=== PATIENT | male | born 1955 | race Caucasian/White ===

== ENCOUNTER → 2017-12-21 | Outpatient (CLI) | payer MEDICARE, OTHER | LOC: LABWHC1 09:24 | PROVIDERS: ATTEND Urology | DX: N31.2 Flaccid neuropathic bladder, not elsewhere classified (principal) | CPT/HCPCS: 36415; 84153 ==

== ENCOUNTER → 2019-04-22 | Outpatient (CLI) | payer MEDICARE, OTHER ==
--- NOTE | 2019-04-22 09:26 | MR ---
EXAMINATION TYPE: MR lumbar spine wo con DATE OF EXAM: 04/22/2019 COMPARISON: X-ray 01/24/2016 HISTORY: Lumbago; Radiculopathy TECHNIQUE: T1 and T2 axial and sagittal images of the lumbar spine are submitted. FINDINGS: There is no abnormal signal seen within the visualized spinal cord or paraspinal soft tissu es. Nonspecific heterogeneous marrow signal. Subcentimeter right renal cyst suspected involving the u pper pole anteriorly. Incidental note made of a retroaortic left renal vein At L1-2 there is no disc herniation or canal stenosis. No foraminal encroachment. No degenerative dis c disease. At L2-3 there is diffuse circumferential disc bulging with hypertrophy of the facets and ligamentum f lavum. Mild bilateral foraminal encroachment. No Canal stenosis At L3-4 there is disc desiccation with broad-based disc bulging. There is more advanced facet arthrop athy and ligamentum flavum hypertrophy. Findings result in mild central stenosis and moderate to valentin re bilateral foraminal encroachment. At L4-5 there is disc desiccation with broad-based disc protrusion. Advanced facet arthropathy and li gamentum flavum hypertrophy. Moderate canal stenosis and moderate to severe bilateral foraminal encro achment. At L5-S1 there is broad-based central and right paracentral disc herniation with displacement of the right nerve root. There is mild impression upon the thecal sac. Mild to moderate bilateral foraminal encroachment. IMPRESSION: 1. Broad-based central and right paracentral disc herniation L5-S1 with displacement of the right ner ve root. 2. Broad-based central disc protrusion or herniation L4-L5. Hypertrophic change of the facets and lig amentum flavum result in moderate canal stenosis and moderate to severe bilateral foraminal encroachm ent. 3. Broad-based disc protrusion L3-L4 with hypertrophic change of the facets and ligamentum flavum res ults in mild canal stenosis and moderate to severe foraminal encroachment. 4. Multilevel mild degenerative disc disease with severe changes L5-S1
== END | disposition home or self-care (01) ==
LOC: RADMRIMAIN 08:41
PROVIDERS: ATTEND Neurological Surgery
DX: M48.061 Spinal stenosis, lumbar region without neurogenic claudication (principal); M51.16 Intervertebral disc disorders with radiculopathy, lumbar region; M51.27 Other intervertebral disc displacement, lumbosacral region; M51.37 Other intervertebral disc degeneration, lumbosacral region
CPT/HCPCS: 72148

== ENCOUNTER 2020-06-22 15:02 | Inpatient (IN) | payer MEDICARE, OTHER ==
[2020-06-22] MEDS ORDERED: ACETAMINOPHEN TAB 500 MG TAB PO PRN (15:19)
--- NOTE | 2020-06-22 15:31 | ED ---
SOB HPI - General Chief Complaint: Shortness of Breath Stated Complaint: Covid+/Headache/Cough Time Seen by Provider: 06/22/20 15:19 Source: patient Mode of arrival: ambulatory Limitations: no limitations - History of Present Illness Initial Comments: Augustus is a 65yo M with PMH of CAD and COPD who presents to the ER today for evaluation of feeling ill while having COVID. Patient reports that his significant other was symptomatic earlier in the week so they were both tested on the third, both tested positive. Patient reports that he didn't begin fe eling ill until yesterday. He states he has fevers, chills, body aches. He reports only mild shortness of breath. Denies any chest pain or cough. Denies any GI symptoms. - Related Data Home Medications Medication Instructions Recorded Confirmed Aspirin [Adult Low Dose Aspirin EC] 81 mg PO HS 01/21/16 06/22/20 Atorvastatin [Lipitor] 20 mg PO HS 01/21/16 06/22/20 Carvedilol [Coreg] 12.5 mg PO BID 01/21/16 06/22/20 Cyclobenzaprine [Flexeril] 10 mg PO BID PRN 01/21/16 06/22/20 Fluticasone/Vilanterol [Breo 1 puff INHALATION RT-DAILY 01/21/16 06/22/20 Ellipta 200-25 Mcg INH] Ipratropium/Albuterol Sulfate 1 puff INHALATION RT-QID PRN 01/21/16 06/22/20 [Combivent Respimat Inhaler] Zolpidem [Ambien] 10 mg PO HS 01/21/16 06/22/20 clonazePAM [KlonoPIN] 0.5 mg PO TID PRN 01/21/16 06/22/20 oxyCODONE-APAP 10-325MG [Percocet 1 tab PO Q4H PRN 01/21/16 06/22/20 10-325 mg] Famotidine [Pepcid] 20 mg PO HS 06/22/20 06/22/20 lisinopriL [Zestril] 5 mg PO DAILY 06/22/20 06/22/20 Allergies Allergy/AdvReac Type Severity Reaction Status Date / Time morphine Allergy Unknown Nausea & Verified 06/22/20 15:10 Vomiting Review of Systems ROS Statement: Those systems with pertinent positive or pertinent negative responses have been documented in the HPI. ROS Other: All systems not noted in ROS Statement are negative. Past Medical History Past Medical History: COPD, Hypertension, Myocardial Infarction ([place]), Musculoskeletal Disorder, Osteoarthritis (OA) Additional Past Medical History / Comment(s): BACK AND NECK PAIN, STATES DISCHARGED FROM [facility] 2 WEEKS AGO FOR DIVERTICULITIS. , STATES VOICE IS RASPY FROM CERVICAL SURGERIES WITH BREATHING TUBE. Last Myocardial Infarction Date:: 2008 History of Any Multi-Drug Resistant Organisms: None Reported Past Surgical History: Appendectomy, Heart Catheterization With Stent, Orthopedic Surgery Additional Past Surgical History / Comment(s): ROTATOR CUFF REPAIR, ARTHROSCOPIC KNEE SURGERY, HEART CATHS X5-HAS 8 STENTS (LAST STENT 2009), CERVICAL SURGERY X4 WITH HARDWARE. Past Anesthesia/Blood Transfusion Reactions: No Reported Reaction Additional Past Anesthesia/Blood Transfusion Reaction / Comment(s): NEVER RECEIVED BLOOD TRANSFUSION Date of Last Stent Placement:: 2009 Past Psychological History: Anxiety Smoking Status: Former smoker Past Alcohol Use History: None Reported Past Drug Use History: None Reported - Past Family History Mother Family Medical History: Cancer Brother(s) Family Medical History: Cancer General Exam Limitations: no limitations General appearance: alert Head exam: Present: atraumatic, normocephalic Respiratory exam: Present: other (tachypnea) Cardiovascular Exam: Present: tachycardia GI/Abdominal exam: Absent: distended Rectal exam: Present: deferred Extremities exam: Present: full ROM Neurological exam: Present: alert, oriented X3 Psychiatric exam: Present: normal affect Skin exam: Present: warm, dry Course Vital Signs 06/22/20 06/22/20 06/22/20 15:08 15:30 17:56 Temperature 101.5 F H 102.1 F H Pulse Rate 134 H 121 H Respiratory 20 26 H 24 Rate Blood Pressure 153/73 137/68 O2 Sat by Pulse 84 L 96 Oximetry Medical Decision Making - Medical Decision Making Patient was seen and evaluated history is obtained from the patient Patient was noted to be hypoxic requiring oxygen on arrival to the emergency department Supplement oxygenation was ordered COVID workup was initiated Patient is not a candidate for monoclonal antibody therapy considering the need for oxygen therapy and admission to the hospital Care with Dr. Gary who accepts admission requested PE study be ordered upon admission - Lab Data Result diagrams: 06/22/20 15:30 06/22/20 15:30 Lab Results 06/22/20 06/22/20 06/22/20 Range/Units 15:30 15:30 15:30 WBC 4.0 (3.8-10.6) k/uL RBC 4.21 L (4.30-5.90) m/uL Hgb 14.2 (13.0-17.5) gm/dL Hct 40.0 (39.0-53.0) % MCV 95.0 (80.0-100.0) fL MCH 33.8 (25.0-35.0) pg MCHC 35.5 (31.0-37.0) g/dL RDW 13.4 (11.5-15.5) % Plt Count 202 (150-450) k/uL MPV 6.6 Neutrophils % 84 % Lymphocytes % 12 % Monocytes % 3 % Eosinophils % 1 % Basophils % 0 % Neutrophils # 3.3 (1.3-7.7) k/uL Lymphocytes # 0.5 L (1.0-4.8) k/uL Monocytes # 0.1 (0-1.0) k/uL Eosinophils # 0.0 (0-0.7) k/uL Basophils # 0.0 (0-0.2) k/uL PT 9.6 (9.0-12.0) sec INR 0.9 (<1.2) APTT 21.8 L (22.0-30.0) sec D-Dimer 0.66 H (<0.60) mg/L FEU Sodium 135 L (137-145) mmol/L Potassium 3.7 (3.5-5.1) mmol/L Chloride 103 (98-107) mmol/L Carbon Dioxide 22 (22-30) mmol/L Anion Gap 10 mmol/L BUN 20 (9-20) mg/dL Creatinine 0.54 L (0.66-1.25) mg/dL Est GFR (CKD-EPI)AfAm >90 (>60 ml/min/1.73 sqM) Est GFR (CKD-EPI)NonAf >90 (>60 ml/min/1.73 sqM) Glucose 150 H (74-99) mg/dL Plasma Lactic Acid Juanito (0.7-2.0) mmol/L Calcium 8.7 (8.4-10.2) mg/dL Magnesium 1.3 L (1.6-2.3) mg/dL Total Bilirubin 0.5 (0.2-1.3) mg/dL AST 27 (17-59) U/L ALT 24 (4-49) U/L Alkaline Phosphatase 97 (38-126) U/L Lactate Dehydrogenase 698 H (313-618) U/L C-Reactive Protein 7.0 H (<1.0) mg/dL Total Protein 6.3 (6.3-8.2) g/dL Albumin 3.7 (3.5-5.0) g/dL 06/22/20 Range/Units 15:30 WBC (3.8-10.6) k/uL RBC (4.30-5.90) m/uL Hgb (13.0-17.5) gm/dL Hct (39.0-53.0) % MCV (80.0-100.0) fL MCH (25.0-35.0) pg MCHC (31.0-37.0) g/dL RDW (11.5-15.5) % Plt Count (150-450) k/uL MPV Neutrophils % % Lymphocytes % % Monocytes % % Eosinophils % % Basophils % % Neutrophils # (1.3-7.7) k/uL Lymphocytes # (1.0-4.8) k/uL Monocytes # (0-1.0) k/uL Eosinophils # (0-0.7) k/uL Basophils # (0-0.2) k/uL PT (9.0-12.0) sec INR (<1.2) APTT (22.0-30.0) sec D-Dimer (<0.60) mg/L FEU Sodium (137-145) mmol/L Potassium (3.5-5.1) mmol/L Chloride (98-107) mmol/L Carbon Dioxide (22-30) mmol/L Anion Gap mmol/L BUN (9-20) mg/dL Creatinine (0.66-1.25) mg/dL Est GFR (CKD-EPI)AfAm (>60 ml/min/1.73 sqM) Est GFR (CKD-EPI)NonAf (>60 ml/min/1.73 sqM) Glucose (74-99) mg/dL Plasma Lactic Acid Juanito 1.2 (0.7-2.0) mmol/L Calcium (8.4-10.2) mg/dL Magnesium (1.6-2.3) mg/dL Total Bilirubin (0.2-1.3) mg/dL AST (17-59) U/L ALT (4-49) U/L Alkaline Phosphatase (38-126) U/L Lactate Dehydrogenase (313-618) U/L C-Reactive Protein (<1.0) mg/dL Total Protein (6.3-8.2) g/dL Albumin (3.5-5.0) g/dL - EKG Data -: EKG Interpreted by [facility] EKG Comments: EKG was obtained due to tachycardia, EKG obtained at 1529, rate is 124 rhythm is sinus tach, normal axis, normal intervals, NJ 126, QRS 74, QTC 436 there are no acute ST elevations or depressions no evidence of ischemia or infarction. Disposition Clinical Impression: COVID-19, Hypoxia Disposition: ADMITTED IP TO THIS HOSP Condition: Serious Is patient prescribed a controlled substance at d/c from ED?: No
[2020-06-22 15:38] LABS: Basophils % (A) 0 %; Eosinophils % (A) 1 %; HGB 14.2 gm/dL (13.0-17.5); Lymphocytes # (A) 0.5 k/uL (1.0-4.8); Lymphocytes % (A) 12 %; MCH 33.8 pg (25.0-35.0); MCHC 35.5 g/dL (31.0-37.0); Mean Platelet Volume 6.6; Monocytes # (A) 0.1 k/uL (0-1.0); Monocytes % (A) 3 %; Neutrophils # (A) 3.3 k/uL (1.3-7.7); Neutrophils % (A) 84 %; Platelet Count 202 k/uL (150-450); RBC 4.21 m/uL (4.30-5.90); RDW 13.4 % (11.5-15.5)
[2020-06-22 15:51] LABS: ALT 24 U/L (4-49); AST 27 U/L (17-59); African American GFR (CKD) >90 (>60 ml/min/1.73 sqM); Albumin 3.7 g/dL (3.5-5.0); Alkaline Phosphatase 97 U/L (38-126); Anion Gap 10 mmol/L; Blood Urea Nitrogen 20 mg/dL (9-20); Calcium 8.7 mg/dL (8.4-10.2); Carbon Dioxide 22 mmol/L (22-30); Chloride 103 mmol/L (98-107); Glucose 150 mg/dL (74-99); LDH 698 U/L (313-618); Magnesium 1.3 mg/dL (1.6-2.3); Non-African American GFR(CKD) >90 (>60 ml/min/1.73 sqM); Potassium 3.7 mmol/L (3.5-5.1); Sodium 135 mmol/L (137-145); Total Bilirubin 0.5 mg/dL (0.2-1.3); Total Protein 6.3 g/dL (6.3-8.2)
[2020-06-22 16:19] LABS: INR 0.9 (<1.2); Prothrombin Time 9.6 sec (9.0-12.0)
--- NOTE | 2020-06-22 16:20 | XR ---
EXAMINATION TYPE: XR chest 1V portable DATE OF EXAM: 06/22/2020 COMPARISON: 04/02/2009 INDICATION: Headache cough, covid TECHNIQUE: Single frontal view of the chest is obtained. FINDINGS: The heart size is upper limits of normal. The pulmonary vasculature is normal. Bibasilar infiltrates are present. IMPRESSION: 1. Nonspecific bibasilar infiltrates. Atelectasis and pneumonia can be considered. Atypical pneumonia could be considered.
[2020-06-22 16:26] LABS: Partial Thromboplastin Time 21.8 sec (22.0-30.0)
[2020-06-22 16:28] LABS: D-Dimer 0.66 mg/L FEU (<0.60)
[2020-06-22] MEDS ORDERED: MELATONIN 3 MG TABLET PO PRN (17:08)
[2020-06-22] MEDS ORDERED: NALOXONE 0.4 MG/ML 1 ML VIAL IV PRN (17:08)
[2020-06-22] MEDS ORDERED: IBUPROFEN 400 MG TAB PO PRN (17:08)
[2020-06-22] MEDS: SODIUM CHLORIDE 0.9% 1,000 ML IV SCH (17:22)
[2020-06-22] MEDS: ENOXAPARIN 40 MG/0.4 ML SYRINGE SQ SCH (17:55)
--- NOTE | 2020-06-22 18:57 | CT ---
EXAMINATION TYPE: CT chest angio for PE DATE OF EXAM: 06/22/2020 COMPARISON: None HISTORY: Dyspnea, +covid. CT DLP: 299.2 mGycm Automated exposure control for dose reduction was used. CONTRAST: Performed with IV Contrast, patient injected with 100ml mL of Isovue 370. There are 3-D post processed images. There is diffuse pulmonary emphysema. There is coarse interstitial density in the anterior right uppe r lobe. There is coarse mild interstitial infiltrates in the posterior mid lung daigle. There is some airspace consolidation and atelectasis in both posterior lower lobes. I see no discrete dominant mas s. Heart size is normal. There is no pericardial effusion. There is no mediastinal adenopathy. There are no hilar masses. There is normal contrast opacification of the pulmonary arteries. There are no filling defects. Thora cic aorta is atheromatous. There is no evidence of aneurysm or dissection. The bony thorax is intact. The upper abdominal soft tissues appear intact. IMPRESSION: No evidence of pulmonary embolism. Bilateral lower lobe pneumonia. Emphysema. Reticular interstitial pulmonary infiltrates in the mid an d upper lung daigle could relate to pulmonary fibrosis.
[2020-06-22] MEDS ORDERED: Magnesium Replacement Protocol 1 EACH MISC MISCELLANE PRN (19:15)
[2020-06-22] MEDS ORDERED: CYCLOBENZAPRINE 10 MG TAB PO PRN (20:49)
[2020-06-22] MEDS ORDERED: ALBUTEROL HFA INHALER INHALATION PRN (20:49)
[2020-06-22] MEDS ORDERED: TIOTROPIUM 2.5 MCG INHALER INHALATION PRN (20:56)
[2020-06-22] MEDS ORDERED: ZOLPIDEM 5 MG TAB PO PRN (21:00)
[2020-06-22] MEDS: MAGNESIUM SULFATE-D5W PMX 1 GM in DEXTROSE/WATER 1 100ML.BAG IVPB SCH ×3 (21:06→23:52)
[2020-06-22] MEDS: dexAMETHasone 2 MG TAB PO SCH (21:06)
[2020-06-22] MEDS: ATORVASTATIN 20 MG TAB PO SCH (21:07)
[2020-06-22] MEDS: ASPIRIN 81 MG PO SCH (21:07)
[2020-06-22] MEDS: FAMOTIDINE 20 MG TAB PO SCH (21:07)
[2020-06-22] MEDS: carvediloL 12.5 MG TAB PO SCH (21:08)
[2020-06-23] MEDS: SODIUM CHLORIDE 0.9% 1,000 ML IV SCH ×3 (04:34→17:00)
[2020-06-23 06:18] LABS: Ferritin 703.9 ng/mL (22.0-322.0)
[2020-06-23] MEDS: carvediloL 12.5 MG TAB PO SCH ×2 (06:37→17:01)
[2020-06-23] MEDS: SYMBICORT 160-4.5 MCG INHALER INHALATION SCH ×2 (07:35→21:16)
[2020-06-23] MEDS: oxyCODONE-APAP 10-325MG 1 EACH TAB PO PRN ×3 (08:45→21:03)
[2020-06-23] MEDS: dexAMETHasone 2 MG TAB PO SCH (08:46)
[2020-06-23] MEDS: ENOXAPARIN 40 MG/0.4 ML SYRINGE SQ SCH (08:46)
[2020-06-23] MEDS: lisinopriL 5 MG TAB PO SCH (08:46)
--- NOTE | 2020-06-23 13:15 | P.CNPUL ---
History of Present Illness Consult date: 06/23/20 Reason for consult: dyspnea, COPD, pneumonia History of present illness: 65-year-old male patient with known history of COPD. The patient is very well- known to me. He has a FEV1 of 65% of predicted. He is also known to have CAD, previous PR, he is known to have unilateral vocal cord paralysis, hypertension and hyperlipidemia and chronic back pain. The patient's girlfriend that sick with "with approximately 5 days ago. The patient was having some cough and he went and checked himself with [facility] on 06/19/2020 and he checked positive. Sub sequently, he takes cough got worse and he started having fever and for that he came into the emergency. His girlfriend took monoclonal antibodies and she left and the patient was hospitalized. CAT scan of the chest shows consolidation of the lower lobes more so on the left. Currently is on 6 L of oxygen by nasal cannula. He has a congested cough. Unable to bring up much sputum. No chest pain. No loss in taste or smell. No altered mentation. His LDH level is mildly elevated at 698 with a CRP level of 7. D-dimer 0.66. CAT scan of the chest showed lower lobe consolidations bilaterally. Worse on the left. He has advanced COPD. The patient is currently on 6 L. Hemodynamically stable. 3 of any chest pain. No altered mentation. No dehydration. No diarrhea. No leukocytosis. He does have lymphopenia. Review of Systems Constitutional: Reports fatigue, Reports fever Eyes: denies as per HPI, denies blurred vision, denies bulging eye, denies decreased vision, denies diplopia, denies discharge, denies dry eye, denies irritation, denies itching, denies pain, denies photophobia, denies loss of peripheral vision, denies loss of vision, denies tunnel vision/blind spots Ears: deny: decreased hearing, ear discharge, earache, tinnitus Ears, nose, mouth and throat: Reports as per HPI Breasts: absent: as per HPI, gynecomastia Cardiovascular: Reports decreased exercise tolerance, Reports dyspnea on exertion, Reports shortness of breath Respiratory: Reports cough, Reports dyspnea Gastrointestinal: Reports as per HPI Genitourinary: Reports as per HPI Musculoskeletal: Reports as per HPI Musculoskeletal: absent: ankle pain, ankle stiffness, ankle swelling, as per HPI, elbow pain, elbow stiffness, elbow swelling, foot pain, foot stiffness, foot swelling, hand pain, hand stiffness, hand swelling, hip pain, hip stiffness, hip swelling, knee pain, knee stiffness, knee swelling, shoulder pain, shoulder stiffness, shoulder swelling, wrist pain, wrist stiffness, wrist swelling Integumentary: Reports as per HPI Neurological: Reports as per HPI Psychiatric: Reports as per HPI Endocrine: Reports as per HPI Hematologic/Lymphatic: Reports as per HPI Allergic/Immunologic: Reports as per HPI Past Medical History Past Medical History: COPD, Hypertension, Myocardial Infarction ([place]), Musculoskeletal Disorder, Osteoarthritis ([place]) Additional Past Medical History / Comment(s): BACK AND NECK PAIN, STATES DISCHARGED FROM [facility] 2 WEEKS AGO FOR DIVERTICULITIS. , STATES VOICE IS RASPY FROM CERVICAL SURGERIES WITH BREATHING TUBE. Last Myocardial Infarction Date:: 2008 History of Any Multi-Drug Resistant Organisms: None Reported Past Surgical History: Appendectomy, Heart Catheterization With Stent, Orthopedic Surgery Additional Past Surgical History / Comment(s): ROTATOR CUFF REPAIR, ARTHROSCOPIC KNEE SURGERY, HEART CATHS X5-HAS 8 STENTS (LAST STENT 2009), CERVICAL SURGERY X4 WITH HARDWARE. Past Anesthesia/Blood Transfusion Reactions: No Reported Reaction Additional Past Anesthesia/Blood Transfusion Reaction / Comment(s): NEVER RECEIVED BLOOD TRANSFUSION Date of Last Stent Placement:: 2009 Past Psychological History: Anxiety Additional Psychological History / Comment(s): "NERVES" Smoking Status: Former smoker Past Alcohol Use History: None Reported Additional Past Alcohol Use History / Comment(s): SMOKED 2PPD. QUIT SMOKING 2008. SMOKED APPROX 30 YEARS. Past Drug Use History: None Reported - Past Family History Mother Family Medical History: Cancer Brother(s) Family Medical History: Cancer Medications and Allergies Home Medications Medication Instructions Recorded Confirmed Type Aspirin [Adult Low Dose Aspirin EC] 81 mg PO HS 01/21/16 06/22/20 History Atorvastatin [Lipitor] 20 mg PO HS 01/21/16 06/22/20 History Carvedilol [Coreg] 12.5 mg PO BID 01/21/16 06/22/20 History Cyclobenzaprine [Flexeril] 10 mg PO BID PRN 01/21/16 06/22/20 History Fluticasone/Vilanterol [Breo 1 puff INHALATION RT-DAILY 01/21/16 06/22/20 History Ellipta 200-25 Mcg INH] Ipratropium/Albuterol Sulfate 1 puff INHALATION RT-QID PRN 01/21/16 06/22/20 History [Combivent Respimat Inhaler] Zolpidem [Ambien] 10 mg PO HS 01/21/16 06/22/20 History clonazePAM [KlonoPIN] 0.5 mg PO TID PRN 01/21/16 06/22/20 History oxyCODONE-APAP 10-325MG [Percocet 1 tab PO Q4H PRN 01/21/16 06/22/20 History 10-325 mg] Famotidine [Pepcid] 20 mg PO HS 06/22/20 06/22/20 History lisinopriL [Zestril] 5 mg PO DAILY 06/22/20 06/22/20 History Allergies Allergy/AdvReac Type Severity Reaction Status Date / Time morphine Allergy Unknown Nausea & Verified 06/22/20 15:10 Vomiting Physical Exam Vitals: Vital Signs Temp Pulse Pulse Resp BP BP Pulse Ox 06/23/20 08:05 89 19 113/70 94 L 06/23/20 04:00 97.9 F 86 18 110/72 96 06/23/20 00:00 97.5 F L 92 18 104/61 92 L 06/22/20 20:00 100.7 F H 116 H 20 116/78 92 L 06/22/20 17:56 102.1 F H 121 H 24 137/68 96 06/22/20 15:30 26 H 06/22/20 15:08 101.5 F H 134 H 20 153/73 84 L Intake and Output 06/22/20 06/23/20 06/23/20 22:59 06:59 14:59 Intake Total 480 480 0 Output Total 600 Balance 480 -120 0 Intake: Oral 480 480 0 Output: Urine 600 Other: Voiding Method Urinal Urinal Self-Catheterization Self-Catheterization Weight 70.307 kg 115 kg The patient appeared well nourished and normally developed. Vital signs as d ocumented. Head exam is unremarkable. No scleral icterus or corneal arcus noted. Neck is without jugular venous distension, thyromegaly, or carotid bruits. Carotid upstrokes are brisk bilaterally. Lungs are diminished bilaterally and the patient's correct in lung bases bilaterally more so on the left. Few scattered expiratory wheezes. Cardiac exam reveals the PMI to be normally sized and situated. Rhythm is regular. First and second heart sounds normal. No murmurs, rubs or gallops. Abdominal exam reveals normal bowel sounds, no masses, no organomegaly and no aortic enlargement. Extremities are nonedematous and both femoral and pedal pulses are normal.Examination of the skin revealed no nikki dence of significant rashes, suspicious appearing nevi or other concerning lesions.Neurologically, the patient is awake and alert and the patient does not have any focal neurological deficit. Cranial nerves are essentially intact. Results - Laboratory Findings CBC and BMP: 06/22/20 15:30 06/22/20 15:30 PT/INR, D-dimer PT 9.6 sec (9.0-12.0) 06/22/20 15:30 INR 0.9 (<1.2) 06/22/20 15:30 D-Dimer 0.66 mg/L FEU (<0.60) H 06/22/20 15:30 Abnormal lab findings: Abnormal Labs 06/22/20 06/22/20 06/22/20 15:30 15:30 15:30 RBC 4.21 L Lymphocytes # 0.5 L APTT 21.8 L D-Dimer 0.66 H Sodium 135 L Creatinine 0.54 L Glucose 150 H Magnesium 1.3 L Ferritin 703.9 H Lactate Dehydrogenase 698 H C-Reactive Protein 7.0 H - Diagnostic Findings Chest x-ray: image reviewed CT scan - chest: image reviewed Assessment and Plan Plan: 1 acute bilateral COVID-19 related pneumonia. Diagnosis established on 06/19/2020. Symptom onset was less than 1 week. The patient is currently on 6 L of oxygen by nasal cannula. 2 acute hypoxic respiratory failure secondary to above currently on 6 L of oxygen by nasal cannula 3 COPD with an FEV1 of 65% of predicted at baseline 4 coronary artery disease with previous myocardial infarction and STEMI 5 unilateral vocal cord paralysis with secondary hoarseness 6 hypertension 7 hyperlipidemia 8 chronic back pain Plan Titrate FiO2 to maintain saturation above 90% Start the patient on Decadron 6 mg by mouth on a daily basis Start Patient on Lovenox 40 mg subcu every 24 hours. Remdesivir per protocol Resume all medications Chest x-ray was reviewed Monitor inflammatory markers We'll continue to follow.
[2020-06-23] MEDS ORDERED: REMDESIVIR 200 MG in SODIUM CHLORIDE 0.9% 250 ML IVPB ONE (15:00)
--- NOTE | 2020-06-23 16:25 | P.HPIM ---
History of Present Illness H&P Date: 06/23/20 Chief Complaint: Shortness of breath Mr. Paul is a 65-year-old male with a past medical history of COPD status post stenting, coronary artery disease, hypertension, unilateral vocal cord paralysis, hyperlipidemia coming in with a chief complaint of difficulty in breathing. Patient was having some difficulty in breathing and cough so got himself checked 4 days back and was tested positive for COVID-19 on 06/19/2020 it [facility] pharmacy. Eventually patient states that he started to have difficulty in breathing that was progressively worsening along with cough and subjective fevers, so he came in for further evaluation. He states that his girlfriend is here and got monoclonal antibodies and was discharged. Patient denied having any chest pain or palpitations. No abdominal pain nausea vomiting or diarrhea. No loss of taste or smell. Patient denies having any swelling of his lower extremities. He denies having any dysuria or hematuria. In the ER at the time of admission patient's vital signs he had a T-max of 102.4, heart rate between 120s to 130s, respiratory rate 20s to 30s, saturating at 96% on 6 L of nasal cannula, blood pressure 153/73. On reviewing his last white count of 4, hemoglobin 14.2, platelets 202. D-dimer 0.66. Sodium 135, potassium 3.7, chloride 103, bicarbonate 22, BUN 20, creatinine 0.54. Magnesium 1.3. Patient had CT in July of the chest that was negative for pulmonary embolism but was showing bilateral lower lobe pneumonia along with reticular interstitial pulmonary infiltrates in the middle and upper lung daigle could be related to pulmonary fibrosis. Review of Systems REVIEW OF SYSTEMS: CONSTITUTIONAL: Positive for fever, anorexia and generalized weakness HEENT: No recent visual problems or hearing problems. Denied any sore throat. CARDIOVASCULAR: No chest pain, orthopnea, PND, no palpitations, no syncope. PULMONARY: Positive for cough or difficulty in breathing. No hemoptysis GASTROINTESTINAL: No diarrhea, no nausea, no vomiting, no abdominal pain. NEUROLOGICAL: Denies having any weakness of his extremities. No syncopal episodes. HEMATOLOGICAL: Denies any bleeding or petechiae. GENITOURINARY: Denies any burning micturition, frequency, or urgency. MUSCULOSKELETAL/RHEUMATOLOGICAL: Denies any joint pain, swelling, or any muscle pain. ENDOCRINE: Denies any polyuria or polydipsia. The rest of the 14-point review of systems is negative. Past Medical History Past Medical History: COPD, Hypertension, Myocardial Infarction (NH), Musculoskeletal Disorder, Osteoarthritis (OA) Additional Past Medical History / Comment(s): BACK AND NECK PAIN, STATES DISCHARGED FROM [facility] 2 WEEKS AGO FOR DIVERTICULITIS. , STATES VOICE IS RASPY FROM CERVICAL SURGERIES WITH BREATHING TUBE. Last Myocardial Infarction Date:: 2008 History of Any Multi-Drug Resistant Organisms: None Reported Past Surgical History: Appendectomy, Heart Catheterization With Stent, Orthopedic Surgery Additional Past Surgical History / Comment(s): ROTATOR CUFF REPAIR, ARTHROSCOPIC KNEE SURGERY, HEART CATHS X5-HAS 8 STENTS (LAST STENT 2009), CERVICAL SURGERY X4 WITH HARDWARE. Past Anesthesia/Blood Transfusion Reactions: No Reported Reaction Additional Past Anesthesia/Blood Transfusion Reaction / Comment(s): NEVER RECEIVED BLOOD TRANSFUSION Date of Last Stent Placement:: 2009 Past Psychological History: Anxiety Additional Psychological History / Comment(s): "NERVES" Smoking Status: Former smoker Past Alcohol Use History: None Reported Additional Past Alcohol Use History / Comment(s): SMOKED 2PPD. QUIT SMOKING 2008. SMOKED APPROX 30 YEARS. Past Drug Use History: None Reported - Past Family History Mother Family Medical History: Cancer Brother(s) Family Medical History: Cancer Medications and Allergies Home Medications Medication Instructions Recorded Confirmed Type Aspirin [Adult Low Dose Aspirin EC] 81 mg PO HS 01/21/16 06/22/20 History Atorvastatin [Lipitor] 20 mg PO HS 01/21/16 06/22/20 History Carvedilol [Coreg] 12.5 mg PO BID 01/21/16 06/22/20 History Cyclobenzaprine [Flexeril] 10 mg PO BID PRN 01/21/16 06/22/20 History Fluticasone/Vilanterol [Breo 1 puff INHALATION RT-DAILY 01/21/16 06/22/20 History Ellipta 200-25 Mcg INH] Ipratropium/Albuterol Sulfate 1 puff INHALATION RT-QID PRN 01/21/16 06/22/20 History [Combivent Respimat Inhaler] Zolpidem [Ambien] 10 mg PO HS 01/21/16 06/22/20 History clonazePAM [KlonoPIN] 0.5 mg PO TID PRN 01/21/16 06/22/20 History oxyCODONE-APAP 10-325MG [Percocet 1 tab PO Q4H PRN 01/21/16 06/22/20 History 10-325 mg] Famotidine [Pepcid] 20 mg PO HS 06/22/20 06/22/20 History lisinopriL [Zestril] 5 mg PO DAILY 06/22/20 06/22/20 History Allergies Allergy/AdvReac Type Severity Reaction Status Date / Time morphine Allergy Unknown Nausea & Verified 06/22/20 15:10 Vomiting Physical Exam Vitals: Vital Signs Temp Pulse Pulse Resp BP BP Pulse Ox 06/23/20 08:05 89 19 113/70 94 L 06/23/20 04:00 97.9 F 86 18 110/72 96 06/23/20 00:00 97.5 F L 92 18 104/61 92 L 06/22/20 20:00 100.7 F H 116 H 20 116/78 92 L 06/22/20 17:56 102.1 F H 121 H 24 137/68 96 06/22/20 15:30 26 H 06/22/20 15:08 101.5 F H 134 H 20 153/73 84 L Intake and Output 06/22/20 06/23/20 06/23/20 22:59 06:59 14:59 Intake Total 480 480 0 Output Total 600 Balance 480 -120 0 Intake: Oral 480 480 0 Output: Urine 600 Other: Voiding Method Urinal Urinal Self-Catheterization Self-Catheterization Weight 70.307 kg 115 kg PHYSICAL EXAMINATION: GENERAL: The patient is alert and oriented x3, not in any acute distress. Well developed, well nourished. HEENT: Pupils are round and equally reacting to light. EOMI. No scleral icterus. No conjunctival pallor. Normocephalic, atraumatic. No pharyngeal erythema. No thyromegaly. CARDIOVASCULAR: S1 and S2 present. No murmurs, rubs, or gallops. PULMONARY: Diminished breath sounds in the bilateral lower lobes. Mild expiratory wheeze.. ABDOMEN: Soft, nontender, nondistended, normoactive bowel sounds. No palpable organomegaly. MUSCULOSKELETAL: No joint swelling or deformity. EXTREMITIES: No cyanosis, clubbing, or pedal edema. NEUROLOGICAL: Gross neurological examination did not reveal any focal deficits. SKIN: No rashes. Results CBC & Chem 7: 06/22/20 15:30 06/22/20 15:30 Labs: Abnormal Lab Results - Last 24 Hours (Table) 06/22/20 06/22/20 06/22/20 Range/Units 15:30 15:30 15:30 RBC 4.21 L (4.30-5.90) m/uL Lymphocytes # 0.5 L (1.0-4.8) k/uL APTT 21.8 L (22.0-30.0) sec D-Dimer 0.66 H (<0.60) mg/L FEU Sodium 135 L (137-145) mmol/L Creatinine 0.54 L (0.66-1.25) mg/dL Glucose 150 H (74-99) mg/dL Magnesium 1.3 L (1.6-2.3) mg/dL Ferritin 703.9 H (22.0-322.0) ng/mL Lactate Dehydrogenase 698 H (313-618) U/L C-Reactive Protein 7.0 H (<1.0) mg/dL Assessment and Plan Assessment: ASSESSMENT Acute hypoxic respiratory failure secondary to COVID-19 pneumonia Acute COPD exacerbation due to above Elevated inflammatory markers Hypomagnesemia History of coronary artery disease status post stenting Unilateral vocal cord paralysis Hypertension Hyperlipidemia Morbid obesity with BMI of 42.2 Chronic low back pain Multiple joint osteoarthritis PLAN: Patient has been started on dexamethasone yesterday, today the patient has been started on Remdesevir . To continue with Lovenox for DVT prophylaxis. Pepcid for GI prophylaxis. Continue with multivitamin supplements including zinc, vitamin C, vitamin D. Patient has been restarted on his home medications. Supplement magnesium. We will continue to monitor inflammatory markers and oxygen saturations. Patient is encouraged to continue with incentive spirometry. Further recommendations to follow depending on the progress of the patient.
[2020-06-23] MEDS: ZINC SULFATE 220 MG CAP PO SCH (17:01)
[2020-06-23] MEDS: ASCORBIC ACID 500 MG TAB PO SCH (17:01)
[2020-06-23] MEDS: ATORVASTATIN 20 MG TAB PO SCH (19:33)
[2020-06-23] MEDS: FAMOTIDINE 20 MG TAB PO SCH (19:33)
[2020-06-23] MEDS: ASPIRIN 81 MG PO SCH (19:33)
[2020-06-23] MEDS: clonazePAM 0.5 MG TAB PO PRN (23:48)
[2020-06-24] MEDS: oxyCODONE-APAP 10-325MG 1 EACH TAB PO PRN ×6 (01:20→23:44)
[2020-06-24] MEDS: SODIUM CHLORIDE 0.9% 1,000 ML IV SCH ×3 (02:16→15:32)
[2020-06-24] MEDS: carvediloL 12.5 MG TAB PO SCH ×2 (06:16→17:24)
[2020-06-24] MEDS: SYMBICORT 160-4.5 MCG INHALER INHALATION SCH ×2 (07:17→19:41)
[2020-06-24 07:49] LABS: Basophils % (A) 0 %; Eosinophils % (A) 0 %; HCT 35.9 % (39.0-53.0); HGB 12.5 gm/dL (13.0-17.5); Lymphocytes # (A) 0.2 k/uL (1.0-4.8); Lymphocytes % (A) 4 %; MCH 33.9 pg (25.0-35.0); MCHC 34.7 g/dL (31.0-37.0); MCV 97.6 fL (80.0-100.0); Mean Platelet Volume 7.3; Monocytes # (A) 0.2 k/uL (0-1.0); Monocytes % (A) 3 %; Neutrophils # (A) 5.6 k/uL (1.3-7.7); Neutrophils % (A) 93 %; Platelet Count 196 k/uL (150-450); RBC 3.68 m/uL (4.30-5.90); RDW 13.4 % (11.5-15.5)
--- NOTE | 2020-06-24 08:05 | XR ---
EXAMINATION TYPE: XR chest 1V portable DATE OF EXAM: 06/24/2020 COMPARISON: 06/22/2020 INDICATION: Covid TECHNIQUE: Single frontal view of the chest is obtained. FINDINGS: The heart size is upper limits of normal. The pulmonary vasculature is normal. Basilar infiltrates are present, worsening from comparison. IMPRESSION: 1. Worsening bibasilar infiltrates. Correlate for atypical pneumonia.
[2020-06-24 08:48] LABS: African American GFR (CKD) >90 (>60 ml/min/1.73 sqM); Anion Gap 8 mmol/L; Blood Urea Nitrogen 17 mg/dL (9-20); Calcium 9.1 mg/dL (8.4-10.2); Carbon Dioxide 26 mmol/L (22-30); Chloride 105 mmol/L (98-107); Glucose 146 mg/dL (74-99); LDH 653 U/L (313-618); Magnesium 1.7 mg/dL (1.6-2.3); Non-African American GFR(CKD) >90 (>60 ml/min/1.73 sqM); Potassium 4.4 mmol/L (3.5-5.1); Sodium 139 mmol/L (137-145)
[2020-06-24] MEDS: ENOXAPARIN 40 MG/0.4 ML SYRINGE SQ SCH (08:49)
[2020-06-24] MEDS: lisinopriL 5 MG TAB PO SCH (08:49)
[2020-06-24] MEDS: ZINC SULFATE 220 MG CAP PO SCH (08:49)
[2020-06-24] MEDS: ASCORBIC ACID 500 MG TAB PO SCH (08:49)
[2020-06-24] MEDS: dexAMETHasone 2 MG TAB PO SCH (08:49)
[2020-06-24 09:32] LABS: C Reactive Protein 38.4 mg/dL (<1.0)
--- NOTE | 2020-06-24 09:56 | P.PN ---
Subjective Progress Note Date: 06/24/20 65-year-old male patient with known history of COPD. The patient is very well- known to me. He has a FEV1 of 65% of predicted. He is also known to have CAD, previous CO, he is known to have unilateral vocal cord paralysis, hypertension and hyperlipidemia and chronic back pain. The patient's girlfriend that sick with "with approximately 5 days ago. The patient was having some cough and he went and checked himself with [facility] on 06/19/2020 and he checked positive. Subsequently, he takes cough got worse and he started having fever and for that he came into the emergency. His girlfriend took monoclonal antibodies and she left and the patient was hospitalized. CAT scan of the chest shows consolida tion of the lower lobes more so on the left. Currently is on 6 L of oxygen by nasal cannula. He has a congested cough. Unable to bring up much sputum. No chest pain. No loss in taste or smell. No altered mentation. His LDH level is mildly elevated at 698 with a CRP level of 7. D-dimer 0.66. CAT scan of the chest showed lower lobe consolidations bilaterally. Worse on the left. He has advanced COPD. The patient is currently on 6 L. Hemodynamically stable. 3 of any chest pain. No altered mentation. No dehydration. No diarrhea. No leukocytosis. He does have lymphopenia. 06/24/2020, the patient continues to have some congested cough. Reviewed the CAT scan of the chest. There is consolidation of the lung bases left more than right. Nevertheless, the overall presentation is typical of COVID-19 pneumonia. Currently he is on 3 L about 2 by nasal cannula. Repeat chest x-ray from today showing some improvement in left lower lobe consolidation. There is also improvement in aeration of the lung bases bilaterally. His inflammatory markers were mildly elevated. D-dimer is at 1.7. LDH is down further and is currently down to 653 and the patient remains on Decadron. Rest of the blood work essentially within normal limits. He has no new complaints otherwise for now. No side effects of treatment. Objective - Vital Signs Vital signs: Vital Signs Temp 97.8 F 06/24/20 08:00 Pulse 105 H 06/24/20 08:00 Resp 20 06/24/20 08:00 BP 124/79 06/24/20 08:00 Pulse Ox 91 L 06/24/20 08:00 Intake & Output 06/23/20 06/24/20 06/24/20 18:59 06:59 18:59 Intake Total 2260 930 Output Total 1100 700 Balance 1160 230 Weight 114.5 kg Intake: Intake, IV Titration 1810 780 Amount Remdesivir 200 mg In 250 Sodium Chloride 0.9% 250 ml @ 250 mls/hr IVPB ONCE ONE Rx#:[id number] Sodium Chloride 0.9% 1, 1560 780 000 ml @ 130 mls/hr IV . Q7H42M [facility] Rx#:[id number] Oral 450 150 Output: Urine 1100 700 Other: Voiding Method Urinal Urinal Self-Catheterization Self-Catheterization # Voids 1 - Exam The patient appeared well nourished and normally developed. Vital signs as documented. Head exam is unremarkable. No scleral icterus or corneal arcus noted. Neck is without jugular venous distension, thyromegaly, or carotid bruits. Carotid upstrokes are brisk bilaterally. Lungs are diminished bilaterally and the patient's correct in lung bases bilaterally more so on the left. Few scattered expiratory wheezes. Cardiac exam reveals the PMI to be normally sized and situated. Rhythm is regular. First and second heart sounds normal. No murmurs, rubs or gallops. Abdominal exam reveals normal bowel sounds, no masses, no organomegaly and no aortic enlargement. Extremities are nonedematous and both femoral and pedal pulses are normal.Examination of the skin revealed no evidence of significant rashes, suspicious appearing nevi or other concerning lesions.Neurologically, the patient is awake and alert and the patient does not have any focal neurological deficit. Cranial nerves are essentially intact. - Labs CBC & Chem 7: 06/24/20 07:23 06/24/20 07:23 Labs: Abnormal Lab Results - Last 24 Hours (Table) 06/24/20 06/24/20 06/24/20 Range/Units 07:23 07:23 07:23 RBC 3.68 L (4.30-5.90) m/uL Hgb 12.5 L (13.0-17.5) gm/dL Hct 35.9 L (39.0-53.0) % Lymphocytes # 0.2 L (1.0-4.8) k/uL D-Dimer 1.70 H (<0.60) mg/L FEU Creatinine 0.54 L (0.66-1.25) mg/dL Glucose 146 H (74-99) mg/dL Lactate Dehydrogenase 653 H (313-618) U/L C-Reactive Protein 38.4 H (<1.0) mg/dL Microbiology - Last 24 Hours (Table) 06/22/20 15:41 Blood Culture - Preliminary Blood No Growth after 24 hours 06/22/20 15:41 Blood Culture - Preliminary Blood No Growth after 24 hours Assessment and Plan Plan: 1 acute bilateral COVID-19 related pneumonia. Diagnosis established on 06/19/2020. Symptom onset was less than 1 week. The patient is currently on 3 L of oxygen by nasal cannula. Say showing some limited improvement compared to yesterday and the patient is clinically stable 2 acute hypoxic respiratory failure secondary to above currently on 6 L of oxygen by nasal cannula 3 COPD with an FEV1 of 65% of predicted at baseline 4 coronary artery disease with previous myocardial infarction and STEMI 5 unilateral vocal cord paralysis with secondary hoarseness 6 hypertension 7 hyperlipidemia 8 chronic back pain Plan Titrate FiO2 to maintain saturation above 90%, currently on 3 L Start the patient on Decadron 6 mg by mouth on a daily basis Lovenox 40 mg subcu every 24 hours. Remdesivir per protocol, day #2 Resume all medications Chest x-ray was reviewed Monitor inflammatory markers, LDH level is low We'll continue to follow.
[2020-06-24] MEDS: clonazePAM 0.5 MG TAB PO PRN ×2 (10:23→23:44)
[2020-06-24] MEDS ORDERED: REMDESIVIR 100 MG in SODIUM CHLORIDE 0.9% 250 ML IVPB SCH (15:00)
--- NOTE | 2020-06-24 15:59 | P.PN ---
Subjective Progress Note Date: 06/24/20 Principal diagnosis: Acute hypoxic respiratory failure secondary to COVID-19 pneumonia Mr. Paul is a 65-year-old male with a past medical history of COPD status post stenting, coronary artery disease, hypertension, unilateral vocal cord paralysis, hyperlipidemia coming in with a chief complaint of difficulty in breathing. Patient was having some difficulty in breathing and cough so got himself checked 4 days back and was tested positive for COVID-19 on 06/19/2020 it [facility] pharmacy. Eventually patient states that he started to have difficulty in breathing that was progressively worsening along with cough and subjective fevers, so he came in for further evaluation. He states that his girlfriend is here and got monoclonal antibodies and was discharged. Patient denied having any chest pain or palpitations. No abdominal pain nausea vomiting or diarrhea. No loss of taste or smell. Patient denies having any swelling of his lower extremities. He denies having any dysuria or hematuria. In the ER at the time of admission patient's vital signs he had a T-max of 102.4, heart rate between 120s to 130s, respiratory rate 20s to 30s, saturating at 96% on 6 L of nasal cannula, blood pressure 153/73. On reviewing his last white count of 4, hemoglobin 14.2, platelets 202. D-dimer 0.66. Sodium 135, potassium 3.7, chloride 103, bicarbonate 22, BUN 20, creatinine 0.54. Magnesium 1.3. Patient had CT in July of the chest that was negative for pulmonary embolism but was showing bilateral lower lobe pneumonia along with reticular interstitial pulmonary infiltrates in the middle and upper lung daigle could be related to pulmonary fibrosis. On 06/24/2020 - patient is seen and examined at the bedside. Patient states his difficulty in breathing is slowly improving. He still complains of cough and also complaining that he is a little anxious to be staying in the hospital. Patient denies having any chest pain or palpitations. No abdominal pain nausea vomiting or diarrhea. No dysuria or hematuria. On reviewing the vitals from this morning T-max of 99.1, heart rate 96, respiratory rate 20, blood pressure 146/73, saturating at 93% on 3 L of nasal cannula. On reviewing his labs from this morning white count of 6.0, hemoglobin 12.5, platelets of 196. D-dimer 1.70. Sodium 139, patient will 0.4, chloride 105, bicarbonate 26, BUN 17, creatinine 0.54. LDH 653, CRP 38.4. He is continued on Decadron, Lovenox, Remdesivir, Vitamin supplements. All his other medications have been reviewed. Objective - Vital Signs Vital signs: Vital Signs Temp 98 F 06/24/20 11:49 Pulse 107 H 06/24/20 11:49 Resp 20 06/24/20 11:49 BP 150/88 06/24/20 11:49 Pulse Ox 92 L 06/24/20 11:49 Intake & Output 06/23/20 06/24/20 06/24/20 18:59 06:59 18:59 Intake Total 2260 930 240 Output Total 1100 700 Balance 1160 230 240 Weight 114.5 kg Intake: Intake, IV Titration 1810 780 Amount Remdesivir 200 mg In 250 Sodium Chloride 0.9% 250 ml @ 250 mls/hr IVPB ONCE ONE Rx#:[id number] Sodium Chloride 0.9% 1, 1560 780 000 ml @ 130 mls/hr IV . Q7H42M [facility] Rx#:[id number] Oral 450 150 240 Output: Urine 1100 700 Other: Voiding Method Urinal Urinal Self-Catheterization Self-Catheterization # Voids 1 1 - Exam PHYSICAL EXAMINATION: GENERAL: The patient is alert and oriented x3, not in any acute distress. Well developed, well nourished. HEENT: Pupils are round and equally reacting to light. EOMI. No scleral icterus. No conjunctival pallor. CARDIOVASCULAR: S1 and S2 present. No murmurs, rubs, or gallops. PULMONARY: Diminished breath sounds in the bilateral lower lobes. Mild expiratory wheeze.. ABDOMEN: Soft, nontender, nondistended, normoactive bowel sounds. No palpable organomegaly. MUSCULOSKELETAL: No joint swelling or deformity. EXTREMITIES: No cyanosis, clubbing, or pedal edema. NEUROLOGICAL: Gross neurological examination did not reveal any focal deficits. SKIN: No rashes. - Labs CBC & Chem 7: 06/24/20 07:23 06/24/20 07:23 Labs: Abnormal Lab Results - Last 24 Hours (Table) 06/24/20 06/24/20 06/24/20 Range/Units 07:23 07:23 07:23 RBC 3.68 L (4.30-5.90) m/uL Hgb 12.5 L (13.0-17.5) gm/dL Hct 35.9 L (39.0-53.0) % Lymphocytes # 0.2 L (1.0-4.8) k/uL D-Dimer 1.70 H (<0.60) mg/L FEU Creatinine 0.54 L (0.66-1.25) mg/dL Glucose 146 H (74-99) mg/dL Lactate Dehydrogenase 653 H (313-618) U/L C-Reactive Protein 38.4 H (<1.0) mg/dL Microbiology - Last 24 Hours (Table) 06/22/20 15:41 Blood Culture - Preliminary Blood No Growth after 24 hours 06/22/20 15:41 Blood Culture - Preliminary Blood No Growth after 24 hours Assessment and Plan Assessment: ASSESSMENT Acute hypoxic respiratory failure secondary to COVID-19 pneumonia Acute COPD exacerbation due to above Elevated inflammatory markers Hypomagnesemia History of coronary artery disease status post stenting Unilateral vocal cord paralysis Hypertension Hyperlipidemia Morbid obesity with BMI of 42.2 Chronic low back pain Multiple joint osteoarthritis PLAN: Patient to be continued and REM, dexamethasone, Lovenox, vitamin C, zinc and Pepcid for GI prophylaxis. Supplement magnesium. We will continue to monitor inflammatory markers and oxygen saturations and chest x-ray. Patient is encouraged to continue with incentive spirometry. Further recommendations to follow depending on the progress of the patient.
[2020-06-24] MEDS: ATORVASTATIN 20 MG TAB PO SCH (19:28)
[2020-06-24] MEDS: FAMOTIDINE 20 MG TAB PO SCH (19:28)
[2020-06-24] MEDS: ASPIRIN 81 MG PO SCH (19:28)
[2020-06-25] MEDS: oxyCODONE-APAP 10-325MG 1 EACH TAB PO PRN ×3 (04:38→13:00)
[2020-06-25] MEDS: SODIUM CHLORIDE 0.9% 1,000 ML IV SCH ×2 (06:18→09:05)
[2020-06-25] MEDS: carvediloL 12.5 MG TAB PO SCH (06:34)
[2020-06-25 07:30] LABS: Basophils % (A) 0 %; Eosinophils % (A) 0 %; HCT 37.7 % (39.0-53.0); HGB 12.8 gm/dL (13.0-17.5); Lymphocytes # (A) 0.2 k/uL (1.0-4.8); Lymphocytes % (A) 4 %; MCH 33.7 pg (25.0-35.0); MCHC 33.9 g/dL (31.0-37.0); MCV 99.2 fL (80.0-100.0); Mean Platelet Volume 6.9; Monocytes # (A) 0.2 k/uL (0-1.0); Monocytes % (A) 3 %; Neutrophils # (A) 5.6 k/uL (1.3-7.7); Neutrophils % (A) 93 %; Platelet Count 252 k/uL (150-450); RDW 13.3 % (11.5-15.5); WBC 6.1 k/uL (3.8-10.6)
[2020-06-25 07:49] LABS: ALT 22 U/L (4-49); AST 28 U/L (17-59); African American GFR (CKD) >90 (>60 ml/min/1.73 sqM); Albumin 3.2 g/dL (3.5-5.0); Alkaline Phosphatase 75 U/L (38-126); Anion Gap 10 mmol/L; Blood Urea Nitrogen 18 mg/dL (9-20); Calcium 9.2 mg/dL (8.4-10.2); Carbon Dioxide 27 mmol/L (22-30); Chloride 103 mmol/L (98-107); Glucose 176 mg/dL (74-99); LDH 824 U/L (313-618); Non-African American GFR(CKD) >90 (>60 ml/min/1.73 sqM); Potassium 4.1 mmol/L (3.5-5.1); Sodium 140 mmol/L (137-145); Total Bilirubin 0.4 mg/dL (0.2-1.3); Total Protein 5.7 g/dL (6.3-8.2)
--- NOTE | 2020-06-25 08:18 | P.DS ---
Providers Date of admission: 06/22/20 17:10 Attending physician: Tan Gary Consults: 06/23/20 11:45 Consult Physician Routine Consulting Provider: Jackson Bone Consult Reason/Comments: COVID +, Hypoxia Do you want consulting provider notified?: Yes Primary care physician: Aden Mcdonald Hospital Course: This discharge summary 65-year-old white male essentially admitted for hypoxia with Covid. The patient is stabilizing on 3 L of nasal cannula on on dust severe. The patient will be discharged once cleared by pulmonology to be most likely sent home on temporary home oxygen. The patient is tolerating diet without difficulty alert and oriented and will follow-up with me in about one week. Patient Condition at Discharge: Serious Plan - Discharge Summary Discharge Rx Participant: Yes New Discharge Prescriptions: Continue oxyCODONE-APAP 10-325MG [Percocet 10-325 mg] 1 tab PO Q4H PRN PRN Reason: Pain Cyclobenzaprine [Flexeril] 10 mg PO BID PRN PRN Reason: Pain clonazePAM [KlonoPIN] 0.5 mg PO TID PRN PRN Reason: Anxiety Zolpidem [Ambien] 10 mg PO HS Carvedilol [Coreg] 12.5 mg PO BID Atorvastatin [Lipitor] 20 mg PO HS Ipratropium/Albuterol Sulfate [Combivent Respimat Inhaler] 1 puff INHALATION RT-QID PRN PRN Reason: Shortness Of Breath Fluticasone/Vilanterol [Breo Ellipta 200-25 Mcg INH] 1 puff INHALATION RT- DAILY Aspirin [Adult Low Dose Aspirin EC] 81 mg PO HS lisinopriL [Zestril] 5 mg PO DAILY Famotidine [Pepcid] 20 mg PO HS Discharge Medication List Aspirin [Adult Low Dose Aspirin EC] 81 mg PO HS 01/21/16 [History] Atorvastatin [Lipitor] 20 mg PO HS 01/21/16 [History] Carvedilol [Coreg] 12.5 mg PO BID 01/21/16 [History] Cyclobenzaprine [Flexeril] 10 mg PO BID PRN 01/21/16 [History] Fluticasone/Vilanterol [Breo Ellipta 200-25 Mcg INH] 1 puff INHALATION RT-DAILY 01/21/16 [History] Ipratropium/Albuterol Sulfate [Combivent Respimat Inhaler] 1 puff INHALATION RT- QID PRN 01/21/16 [History] Zolpidem [Ambien] 10 mg PO HS 01/21/16 [History] clonazePAM [KlonoPIN] 0.5 mg PO TID PRN 01/21/16 [History] oxyCODONE-APAP 10-325MG [Percocet 10-325 mg] 1 tab PO Q4H PRN 01/21/16 [History] Famotidine [Pepcid] 20 mg PO HS 06/22/20 [History] lisinopriL [Zestril] 5 mg PO DAILY 06/22/20 [History] Follow up Appointment(s)/Referral(s): Aden Mcdonald MD [Primary Care Provider] - 1 Week Discharge Disposition: HOME SELF-CARE
[2020-06-25 08:20] LABS: C Reactive Protein 43.5 mg/dL (<1.0)
[2020-06-25] MEDS: SYMBICORT 160-4.5 MCG INHALER INHALATION SCH (08:22)
[2020-06-25] MEDS: dexAMETHasone 2 MG TAB PO SCH (09:05)
[2020-06-25] MEDS: ZINC SULFATE 220 MG CAP PO SCH (09:05)
[2020-06-25] MEDS: lisinopriL 5 MG TAB PO SCH (09:05)
[2020-06-25] MEDS: ASCORBIC ACID 500 MG TAB PO SCH (09:05)
[2020-06-25] MEDS: ENOXAPARIN 40 MG/0.4 ML SYRINGE SQ SCH (09:05)
[2020-06-25 13:06] VITALS: BP 160/91; PULSE 103; RESP 24; TEMP 98.2
--- NOTE | 2020-06-25 18:04 | P.PN ---
Subjective Progress Note Date: 06/25/20 Principal diagnosis: Acute hypoxic respiratory failure secondary to COVID-19 pneumonia 65-year-old male patient with known history of COPD. The patient is very well- known to me. He has a FEV1 of 65% of predicted. He is also known to have CAD, previous AR, he is known to have unilateral vocal cord paralysis, hypertension and hyperlipidemia and chronic back pain. The patient's girlfriend that sick with "with approximately 5 days ago. The patient was having some cough and he went and checked himself with [facility] on 06/19/2020 and he checked positive. Subsequently, he takes cough got worse and he started having fever and for that he came into the emergency. His girlfriend took monoclonal antibodies and she left and the patient was hospitalized. CAT scan of the chest shows consolidation of the lower lobes more so on the left. Currently is on 6 L of oxygen by nasal cannula. He has a congested cough. Unable to bring up much sputum. No chest pain. No loss in taste or smell. No altered mentation. His LDH level is mildly elevated at 698 with a CRP level of 7. D-dimer 0.66. CAT scan of the chest showed lower lobe consolidations bilaterally. Worse on the left. He has advanced COPD. The patient is currently on 6 L. Hemodynamically stable. 3 of any chest pain. No altered mentation. No dehydration. No diarrhea. No leukocytosis. He does have lymphopenia. 06/24/2020, the patient continues to have some congested cough. Reviewed the CAT scan of the chest. There is consolidation of the lung bases left more than right. Nevertheless, the overall presentation is typical of COVID-19 pneumonia. Currently he is on 3 L about 2 by nasal cannula. Repeat chest x-ray from today showing some improvement in left lower lobe consolidation. There is also improvement in aeration of the lung bases bilaterally. His inflammatory markers were mildly elevated. D-dimer is at 1.7. LDH is down further and is currently down to 653 and the patient remains on Decadron. Rest of the blood work essentially within normal limits. He has no new complaints otherwise for now. No side effects of treatment. Reevaluated today on 06/25/2020, patient is on 3 L nasal cannula, he was being discharged by his admitting physician, feeling better, breathing easier, however the patient will need home oxygen he will need to be on Decadron on outpatient basis. Patient is feeling much better today compared to how he felt in the last couple of days. Labs were reviewed. WBC count is 6.1 hemoglobin is 12.8. D- dimer is 1.81. Left lites are normal. Objective - Vital Signs Vital signs: Vital Signs Temp 98.2 F 06/25/20 12:00 Pulse 103 H 06/25/20 12:00 Resp 24 06/25/20 12:00 BP 160/91 06/25/20 12:00 Pulse Ox 91 L 06/25/20 12:00 Intake & Output 06/24/20 06/25/20 06/25/20 18:59 06:59 18:59 Intake Total 960 300 358 Output Total 800 400 Balance 160 300 -42 Weight 115.5 kg Intake: Oral 960 300 358 Output: Urine 800 400 Other: Voiding Method Urinal Self-Catheterization # Voids 1 - Exam Physical Exam revealed a 65-year-old white male in no distress, on few liters nasal cannula. Head: Atraumatic, normocephalic. HEENT:[Neck is supple.] [No neck masses.] [No thyromegaly.] [No JVD.] Chest: [Crackles at the bases no rhonchi and no wheezes. Cardiac Exam: [Normal S1 and S2, no S3 gallop, no murmur.] Abdomen: [Soft, nontender, no megaly, no rebound, no guarding, normal bowel sounds.] Extremities: [No clubbing, no edema, no cyanosis.] Neurological Exam: [No focal neurologic deficit.] Alert and oriented 3. Psychiatric: Normal mood affect and normal mental status examination. Musculoskeletal no deformities noted the patient range of motion - Labs CBC & Chem 7: 06/25/20 06:26 06/25/20 06:26 Labs: Abnormal Lab Results - Last 24 Hours (Table) 06/25/20 06/25/20 06/25/20 Range/Units 06:26 06:26 06:26 RBC 3.80 L (4.30-5.90) m/uL Hgb 12.8 L (13.0-17.5) gm/dL Hct 37.7 L (39.0-53.0) % Lymphocytes # 0.2 L (1.0-4.8) k/uL D-Dimer 1.81 H (<0.60) mg/L FEU Creatinine 0.52 L (0.66-1.25) mg/dL Glucose 176 H (74-99) mg/dL Lactate Dehydrogenase 824 H (313-618) U/L C-Reactive Protein 43.5 H (<1.0) mg/dL Total Protein 5.7 L (6.3-8.2) g/dL Albumin 3.2 L (3.5-5.0) g/dL Coronavirus (PCR) (Not Detectd) 06/25/20 Range/Units 13:00 RBC (4.30-5.90) m/uL Hgb (13.0-17.5) gm/dL Hct (39.0-53.0) % Lymphocytes # (1.0-4.8) k/uL D-Dimer (<0.60) mg/L FEU Creatinine (0.66-1.25) mg/dL Glucose (74-99) mg/dL Lactate Dehydrogenase (313-618) U/L C-Reactive Protein (<1.0) mg/dL Total Protein (6.3-8.2) g/dL Albumin (3.5-5.0) g/dL Coronavirus (PCR) Detected A (Not Detectd) Microbiology - Last 24 Hours (Table) 06/22/20 15:41 Blood Culture - Preliminary Blood No Growth after 72 hours 06/22/20 15:41 Blood Culture - Preliminary Blood No Growth after 72 hours Assessment and Plan Assessment: Impression: Acute hypoxic respiratory failure secondary to COVID-19 pneumonia History of COPD, FEV1 is in the range of 65%. History of coronary artery disease and previous AR and STEMI. Hypertension. History of vocal cord paralysis Chronic back pain. Recommendation: Continue present treatment plan. Patient received 3 days of REM Patient had a dramatic improvement in his clinical status and he is requiring only 3 L of nasal cannula. Considering the patient is already being discharged and I have read the discharge summary by the admitting physician. We'll clear the patient to be discharged and follow-up on outpatient basis. Patient is come back to the emergency room if his condition gets any worse. Or if his oxygen requirement gets any worse. Time with Patient: Less than 30
== END 2020-06-25 14:57 | disposition home or self-care (01) | DRG 177 ==
LOC: EC 15:02 → 3SCARD 17:10
PROVIDERS: ADMIT Family Medicine; ATTEND Family Medicine
PROC: XW033E5 Introduction of Remdesivir Anti-infective into Peripheral Vein, Percutaneous Approach, New Technology Group 5 (ICD-10-PCS; principal; 2020-06-23)
DX: U07.1 COVID-19 (principal); J96.01 Acute respiratory failure with hypoxia; J12.82 Pneumonia due to coronavirus disease 2019; J44.0 Chronic obstructive pulmonary disease with (acute) lower respiratory infection; Z68.41 Body mass index [BMI] 40.0-44.9, adult; J44.1 Chronic obstructive pulmonary disease with (acute) exacerbation; E66.01 Morbid (severe) obesity due to excess calories; I25.10 Atherosclerotic heart disease of native coronary artery without angina pectoris; I10 Essential (primary) hypertension; D72.810 Lymphocytopenia; J38.01 Paralysis of vocal cords and larynx, unilateral; E78.5 Hyperlipidemia, unspecified; E83.42 Hypomagnesemia; G89.29 Other chronic pain; M54.5 Low back pain; M54.2 Cervicalgia; K57.90 Diverticulosis of intestine, part unspecified, without perforation or abscess without bleeding; F41.9 Anxiety disorder, unspecified; I25.2 Old myocardial infarction; M19.90 Unspecified osteoarthritis, unspecified site; Z79.82 Long term (current) use of aspirin; Z79.51 Long term (current) use of inhaled steroids; Z79.899 Other long term (current) drug therapy; Z90.89 Acquired absence of other organs; Z95.5 Presence of coronary angioplasty implant and graft; Z87.891 Personal history of nicotine dependence; Z87.39 Personal history of other diseases of the musculoskeletal system and connective tissue; Z98.890 Other specified postprocedural states; Z88.5 Allergy status to narcotic agent; Z80.9 Family history of malignant neoplasm, unspecified
CPT/HCPCS: 36415; 71045; 71275; 80048; 80053; 82728; 83605; 83615; 83735; 84145; 85025; 85379; 85610; 85730; 86140; 87040; 87635; 93005; 94640; 99285

== ENCOUNTER 2022-07-24 08:07 | Day surgery (SDC) | payer MEDICARE, OTHER ==
[2022-07-22 11:24] VITALS: BMI 26.6
[~2022-07-24 08:07] MED LIST: LACTATED RINGERS 1,000 ML IV SCH; LIDOCAINE 1% (10MG/ML) FOR IV START INTRADERMA PRN
[2022-07-24 08:28] VITALS: TEMP 97.1
[2022-07-24] MEDS ORDERED: LACTATED RINGERS 1,000 ML IV ONE (08:29)
[2022-07-24] MEDS ORDERED: PROPOFOL 10 MG/ML 20 ML VIAL IV ONE (09:00)
[2022-07-24] MEDS ORDERED: LIDOCAINE 2% INJ 20 MG/ML (2 ML VIAL) ONE (09:00)
--- NOTE | 2022-07-24 09:06 | P.GSHP ---
History of Present Illness H&P Date: 07/24/22 Chief Complaint: Screening colonoscopy Is a 67-year-old male presents today for screening colonoscopy. Patient denies a significant GI complaints. Past Medical History Past Medical History: COPD, Hypertension, Myocardial Infarction ([place]), Musculoskeletal Disorder, Osteoarthritis (OA) Additional Past Medical History / Comment(s): BACK AND NECK PAIN, STATES VOICE IS RASPY FROM CERVICAL SURGERIES WITH BREATHING TUBE. Last Myocardial Infarction Date:: 2008 History of Any Multi-Drug Resistant Organisms: None Reported Past Surgical History: Appendectomy, Heart Catheterization With Stent, Orthopedic Surgery Additional Past Surgical History / Comment(s): RT ROTATOR CUFF REPAIR, ARTHROSCOPIC RT KNEE SURGERY, HEART CATHS X5-HAS 8 STENTS (LAST STENT 2009), CERVICAL SURGERY X4 WITH HARDWARE. COLONOSCOPY Past Anesthesia/Blood Transfusion Reactions: No Reported Reaction Additional Past Anesthesia/Blood Transfusion Reaction / Comment(s): NEVER RECEIVED BLOOD TRANSFUSION Date of Last Stent Placement:: 2009 Smoking Status: Former smoker - Past Family History Mother Family Medical History: Cancer Brother(s) Family Medical History: Cancer Medications and Allergies Home Medications Medication Instructions Recorded Confirmed Type Aspirin [Adult Low Dose Aspirin EC] 81 mg PO HS 01/21/16 07/22/22 History Atorvastatin [Lipitor] 20 mg PO HS 01/21/16 07/22/22 History Carvedilol [Coreg] 12.5 mg PO BID 01/21/16 07/22/22 History Cyclobenzaprine [Flexeril] 10 mg PO BID PRN 01/21/16 07/22/22 History Fluticasone/Vilanterol [Breo 1 puff INHALATION RT-DAILY 01/21/16 07/22/22 History Ellipta 200-25 Mcg Inhaler] Ipratropium/Albuterol Sulfate 1 puff INHALATION RT-QID PRN 01/21/16 07/22/22 History [Combivent Respimat Inhaler] Zolpidem [Ambien] 10 mg PO HS 01/21/16 07/22/22 History clonazePAM [KlonoPIN] 0.5 mg PO TID PRN 01/21/16 07/22/22 History oxyCODONE-APAP 10-325MG [Percocet 1 tab PO Q4H PRN 01/21/16 07/22/22 History 10-325 mg] Famotidine [Pepcid] 20 mg PO HS 06/22/20 07/22/22 History lisinopriL [Zestril] 10 mg PO DAILY 07/22/22 07/22/22 History Allergies Allergy/AdvReac Type Severity Reaction Status Date / Time morphine Allergy Unknown Nausea & Verified 07/24/22 08:24 Vomiting Surgical - Exam Vital Signs Temp Pulse Resp BP 97.1 F L 70 16 158/87 07/24/22 08:26 07/24/22 08:26 07/24/22 08:26 07/24/22 08:26 - General well developed, well nourished, no distress - Eyes PERRL - ENT normal pinna - Neck no masses - Respiratory normal expansion - Cardiovascular Rhythm: regular - Abdomen Abdomen: soft, non tender Assessment and Plan Assessment: We'll perform screening colonoscopy.
--- NOTE | 2022-07-24 09:18 | P.OP ---
Date of Procedure: 07/24/22 Preoperative Diagnosis: Screening colonoscopy Postoperative Diagnosis: External hemorrhoids Diverticulosis Procedure(s) Performed: Colonoscopy Anesthesia: MAC Surgeon: [place] Pathology: none sent Condition: stable Disposition: PACU Description of Procedure: The patient's placed on the endoscopy table in the lateral position. He received IV sedation. Next, digital rectal exam was performed. This revealed external hemorrhoids. The flexible colonoscope was then placed patient anus and passed throughout the entire colon. The ileocecal valve visualized. The cecum, ascending and transverse colon appeared normal. In the descending and sigmoid colon there is extensive diverticular changes. Scope was then brought back the rectum this appeared normal. Scope was then withdrawn internal and external hemorrhoids are noted. Scope withdrawn for patient.
[2022-07-24 09:36] VITALS: BP 134/82; PULSE 65; RESP 16
== END 2022-07-24 10:07 | disposition home or self-care (01) ==
LOC: ORWHC2ENDO 08:07
PROVIDERS: ATTEND Surgery
DX: Z12.11 Encounter for screening for malignant neoplasm of colon (principal); K57.30 Diverticulosis of large intestine without perforation or abscess without bleeding; K64.8 Other hemorrhoids; K64.4 Residual hemorrhoidal skin tags; I25.2 Old myocardial infarction; Z95.5 Presence of coronary angioplasty implant and graft; I25.10 Atherosclerotic heart disease of native coronary artery without angina pectoris; I10 Essential (primary) hypertension; M19.90 Unspecified osteoarthritis, unspecified site; J44.9 Chronic obstructive pulmonary disease, unspecified; Z87.891 Personal history of nicotine dependence; F41.9 Anxiety disorder, unspecified; Z90.49 Acquired absence of other specified parts of digestive tract; Z79.82 Long term (current) use of aspirin; Z79.899 Other long term (current) drug therapy; Z79.51 Long term (current) use of inhaled steroids; Z88.5 Allergy status to narcotic agent; Z98.1 Arthrodesis status
CPT/HCPCS: J2704; J2001; G0121